=== PATIENT | female | born 1975 | race Caucasian/White ===

== ENCOUNTER → 2019-01-18 | Outpatient (CLI) | payer BC ==
[~2019-01-18] MED LIST: ACE3 PO; CYC10 PO; NAPR-1043 PO; PRE20 PO; TRAM-420 PO; VAL500 PO
--- NOTE | 2019-01-18 16:00 | RADIOLOGY IMAGING REPORT ---
FACILITY: [facility] PATIENT NAME: DANYELLE ANNE : [id number] MR: [id number]: [id number] EXAM DATE: [id number] ORDERING PHYSICIAN: MAHIN VARGAS TECHNOLOGIST: Geneva Bill PROCEDURE: BILATERAL DIGITAL SCREENING MAMMOGRAM WITH CAD ASSISTED INTERPRETATION & 3D TOMOSYNTHESIS REASON FOR STUDY: Screening. COMPARISON: 11/10/2015. VIEWS OBTAINED: 2D & 3D full field CC & MLO. BREAST DENSITY: The breasts are heterogeneously dense which may obscure small masses. MAMMOGRAM FINDINGS: There is no suspicious mass, calcification, or architectural distortion. IMPRESSION: BIRADS 1: Negative. DIAGNOSTIC CATEGORY 1--NEGATIVE. RECOMMENDATIONS: ROUTINE MAMMOGRAM AND CLINICAL EVALUATION. Dictated by: Damian Scott M.D. on 01/18/2019 at 14:55 Transcribed by: MARYANNE on 01/18/2019 at 15:04 Approved by: Damian Scott M.D. on 01/18/2019 at 15:58 [facility]
== END ==
LOC: MAMO 00:23
PROVIDERS: ATTEND Specialist
DX: Z12.31 Encounter for screening mammogram for malignant neoplasm of breast (principal)
CPT/HCPCS: 77063; 77067